=== PATIENT | male | born 1945 | race Caucasian/White ===

== ENCOUNTER → 2019-10-16 | Outpatient (CLI) | payer OTHER | LOC: SJCVC 14:47 | DX: R00.1 Bradycardia, unspecified (principal); I25.810 Atherosclerosis of coronary artery bypass graft(s) without angina pectoris; E78.00 Pure hypercholesterolemia, unspecified; I73.9 Peripheral vascular disease, unspecified; I10 Essential (primary) hypertension; J44.9 Chronic obstructive pulmonary disease, unspecified; Z95.1 Presence of aortocoronary bypass graft; Z82.49 Family history of ischemic heart disease and other diseases of the circulatory system; Z79.82 Long term (current) use of aspirin; Z79.899 Other long term (current) drug therapy ==

== ENCOUNTER → 2019-10-17 | Outpatient (CLI) | payer OTHER | LOC: SJCVCIMAG 08:00 | DX: I34.0 Nonrheumatic mitral (valve) insufficiency (principal); I25.810 Atherosclerosis of coronary artery bypass graft(s) without angina pectoris; Z95.1 Presence of aortocoronary bypass graft ==

== ENCOUNTER → 2020-10-17 | Outpatient (CLI) | payer OTHER | LOC: LAB 14:22 | PROVIDERS: ATTEND Internal Medicine Cardiovascular Disease | DX: Z01.812 Encounter for preprocedural laboratory examination (principal); Z20.822 Contact with and (suspected) exposure to COVID-19 ==

== ENCOUNTER 2020-10-21 15:01 | Emergency (ER) | payer OTHER ==
[~2020-10-21] VITALS: Ht 175.3 cm; Wt 95.3 kg
[2020-10-21] MEDS ORDERED: CYCLOBENZAPRINE5 MG PO (17:17)
[2020-10-21] MEDS ORDERED: NORCO7.5 PO (17:17)
[2020-10-21 17:32] VITALS: BP 120/84
== END 2020-10-21 17:33 | disposition home or self-care (01) ==
LOC: ER 15:01
DX: M54.5 Low back pain (principal); V49.9XXA Car occupant (driver) (passenger) injured in unspecified traffic accident, initial encounter; Y93.89 Activity, other specified; Y92.89 Other specified places as the place of occurrence of the external cause; Y99.8 Other external cause status

== ENCOUNTER → 2020-10-22 | Outpatient (CLI) | payer OTHER ==
[~2020-10-22] MED LIST: CYCLOBENZAPRINE5 MG PO; NORCO7.5 PO
[2020-10-22 08:20] LABS: CHOLESTEROL 105 mg/dL (<200); HDL CHOLESTEROL 48 mg/dL (>40); LDL CHOLESTEROL 45 mg/dL (<100); TC:HDL 2.2 Ratio (Not establshd); TRIGLYCERIDE 60 mg/dL (<150); VLDL 12 mg/dL (<40)
[2020-10-22 08:39] VITALS: BP 126/70
--- NOTE | 2020-10-24 09:52 | CATHLAB ---
[facility] [address] [place] [address] INVASIVE PROCEDURE REPORT Name: ALESSANDRO ARGUELLES Room #: REG FABI Hernadez.#: [id number] Admission: 10/22/20 Attend Phys: Leon Hsieh MD, Discharge: Date of : 43 Report #: [id number] THIS REPORT FOR: cc: FAM - No family physician/PCP NO FAMILY PHYSICIAN or PCP Leon Hsieh MD [facility] ~ DATE OF SERVICE: 10/22/2020 PROCEDURE: Implantable loop recorder. ____: Jw Blanco MD INDICATIONS: Syncope. DESCRIPTION OF PROCEDURE: The patient was brought into the catheterization holding area where his left anterior chest was prepped and draped in a sterile fashion. A 1% Xylocaine was used as local anesthetic. A quarter inch stab wound was made over the left fourth intercostal space and a Medtronic Reveal LINQ loop recorder was placed, serial number [id number]. A single bioabsorbable stitch was placed. The incision was covered. Thresholds were excellent. He was discharged to home in stable condition. IMPRESSION: Successful [employer] implantable loop recorder for history of syncope. <ELECTRONICALLY SIGNED> By: Leon Hsieh MD, [facility] 10/24/20 [id number] Leon Hsieh MD, FACC /nt
== END | disposition home or self-care (01) ==
LOC: CATH
PROVIDERS: Internal Medicine Cardiovascular Disease; ATTEND Internal Medicine
DX: R55 Syncope and collapse (principal); I25.10 Atherosclerotic heart disease of native coronary artery without angina pectoris; I10 Essential (primary) hypertension; E78.00 Pure hypercholesterolemia, unspecified; R00.1 Bradycardia, unspecified; I77.9 Disorder of arteries and arterioles, unspecified; J44.9 Chronic obstructive pulmonary disease, unspecified; M19.90 Unspecified osteoarthritis, unspecified site; Z98.890 Other specified postprocedural states; Z79.899 Other long term (current) drug therapy; Z82.49 Family history of ischemic heart disease and other diseases of the circulatory system; Z90.49 Acquired absence of other specified parts of digestive tract